=== PATIENT | male | born 1965 | race Caucasian/White ===

== ENCOUNTER 2017-12-16 05:51 | Day surgery (SDC) | payer OTHER ==
[2017-12-16] MEDS ORDERED: NEURONTIN300 MG PO (09:45)
[2017-12-16] MEDS ORDERED: PERCOCET 5-3251 EACH PO (09:45)
[2017-12-16] MEDS ORDERED: NUPERCAINAL56.7 GM TOP (09:46)
== END 2017-12-16 16:00 | disposition home or self-care (01) ==
LOC: CIR.AMB 05:51
DX: K64.4 Residual hemorrhoidal skin tags (principal); K64.8 Other hemorrhoids

== ENCOUNTER 2020-11-03 07:59 | Day surgery (SDC) | payer OTHER ==
[~2020-11-03 07:59] MED LIST: NEURONTIN300 MG PO; NUPERCAINAL56.7 GM TOP; PERCOCET 5-3251 EACH PO
== END 2020-11-03 13:15 | disposition home or self-care (01) ==
LOC: AMB-ENDOS 07:59
PROVIDERS: ATTEND Surgery
DX: K62.89 Other specified diseases of anus and rectum (principal); K64.4 Residual hemorrhoidal skin tags; Z20.822 Contact with and (suspected) exposure to COVID-19

== ENCOUNTER 2020-12-23 10:36 | Outpatient (CLI) | payer OTHER | END 2020-12-23 10:42 | disposition home or self-care (01) | LOC: PPH VACUNA 10:36 | PROVIDERS: ATTEND Emergency Medicine Pediatric Emergency Medicine | DX: Z23 Encounter for immunization (principal) ==

== ENCOUNTER 2021-10-31 10:50 | Outpatient (CLI) | payer OTHER | END 2021-10-31 11:00 | disposition home or self-care (01) | LOC: PPH VACUNA 10:50 | PROVIDERS: ATTEND Emergency Medicine Pediatric Emergency Medicine | DX: Z23 Encounter for immunization (principal) ==

== ENCOUNTER 2022-04-03 10:02 | Outpatient (CLI) | payer OTHER | END 2022-04-03 10:12 | disposition home or self-care (01) | LOC: PPH VACUNA 10:02 | PROVIDERS: ATTEND Emergency Medicine Pediatric Emergency Medicine | DX: Z23 Encounter for immunization (principal) ==

== ENCOUNTER → 2024-07-31 | Emergency (ER) | payer OTHER ==
[~2024-07-31] VITALS: Ht 172.7 cm; Wt 81.6 kg
[~2024-07-31] MED LIST changes: +0.9 % SODIUM CHLORIDE 1,000 ML IV ONE; +0.9 % SODIUM CHLORIDE 1,000 ML IV SCH; +CEFTRIAXONE SODIUM 2,000 MG VIAL IV ONE; +CEFTRIAXONE SODIUM 2,000 MG VIAL ONE; +COZAAR25 MG PO; +MORPHINE SULFATE 4 MG/ML CARTRIDGE IV ONE; +NOREPINEPHRINE BITARTRATE 1 MG/ML AMPUL IV ONE; +NOREPINEPHRINE BITARTRATE 8 MG in DEXTROSE 5 % IN WATER 250 ML IV SCH; +OxyCODONE HCL 5 MG TABLET (ROXICODONE) PO ONE
[2024-07-31 17:33] LABS: ABG PH 7.419 (7.35-7.45); ABG PO2 75.9 mmHg (80-100); ABG pCO2 32.2 mmHg (35-45); BICARBONATE 20.4 mmol/l (23-25); SaO2 95.2 %; Tco2 21.4 mmol/l
[2024-07-31 17:39] LABS: BASO % 0.2 % (0.1-1.2); HEMATOCRIT 41.9 % (40.1-51.0); HEMOGLOBIN 14.5 g/dL (13.7-17.5); LYMPH # 0.09 (1.18-3.74); LYMPH % 0.9 % (19.3-53.1); MEAN CORPUSCULAR HEMOGLOBIN 31.7 pg (25.6-32.2); MONO # 0.07 (0.24-0.82); MONO % 0.7 % (4.7-12.5); NEUT # 9.85 (1.56-6.13); NEUT % 97.4 % (34.0-71.1); PLATELET COUNT 157 K/uL (163-369); RED BLOOD COUNT 4.58 M/uL (4.63-6.08); RED CELL DISTRIBUTION WIDTH 13.9 % (11.6-14.4)
[2024-07-31 17:48] LABS: INR 1.12; PARTIAL THROMBOPLASTIN TIME 29.3 SECONDS (22.0-34.0); PROTHROMBIN TIME 12.1 SECONDS (9.0-11.5)
[2024-07-31 17:53] LABS: ALBUMIN 3.1 gm/dL (3.4-5.0); BILIRUBIN TOTAL 1.19 mg/dL (0.3-1.2); CALCIUM 8.4 mg/dL (8.5-10.1); CREATININE SERUM 1.93 mg/dL (0.70-1.30); GFR 35.93; GLOBULINA 2.6 G/DL (2.4-3.5); POTASSIUM 4.44 mEq/L (3.5-5.1); TOTAL PROTEIN 5.7 gm/dL (6.4-8.2)
[2024-07-31 18:58] LABS: allen test SATISFACTORY; mode ROOM AIR; o2 21 %; puncture site RADIAL RIGHT
[2024-07-31 19:03] LABS: BILIRUBIN,UNCONJUGATED 0.99 mg/dL (0.0-0.6)
[2024-07-31 19:04] LABS: BILIRUBIN,CONJUGATED 0.2 mg/dL (0.0-0.2)
[2024-07-31 19:13] LABS: URINE APPEARANCE Turbid; URINE BILIRRUBIN Moderate (NEGATIVE); URINE BLOOD Moderate; URINE COLOR Orange; URINE GLUCOSE Negative (NEGATIVE); URINE KETONE Trace (NEGATIVE); URINE LEUKOCYTE Moderate; URINE NITRATE Positive
[2024-07-31 19:18] LABS: URINE BACTERIA 369.6 uL (0.0-1933); URINE CAST 21.35 uL (0.0-1.40); URINE EPITHELIAL CELLS 49.8 uL (0.0-38.8); URINE RBC 32.2 uL (0.0-20.8); URINE WBC 631.7 uL (0.0-23.2)
[2024-07-31 19:22] LABS: COVID-19 AG NEGATIVE (NEGATIVE)
[2024-07-31 20:26] LABS: URINE PROTEIN 100 (NEGATIVE)
== END | disposition designated cancer center or children's hospital (05) ==
LOC: ER 16:24
PROVIDERS: General Practice
DX: I95.89 Other hypotension (principal); Z85.46 Personal history of malignant neoplasm of prostate; Z85.038 Personal history of other malignant neoplasm of large intestine; I10 Essential (primary) hypertension; S37.019A Minor contusion of unspecified kidney, initial encounter; N39.0 Urinary tract infection, site not specified
CPT/HCPCS: 36415; 74176; 74177; 82803; 93005; Q9965

== ENCOUNTER 2024-10-19 10:05 | Outpatient (CLI) | payer OTHER ==
[~2024-10-19 10:05] MED LIST changes: -0.9 % SODIUM CHLORIDE 1,000 ML IV ONE; -0.9 % SODIUM CHLORIDE 1,000 ML IV SCH; -CEFTRIAXONE SODIUM 2,000 MG VIAL IV ONE; -CEFTRIAXONE SODIUM 2,000 MG VIAL ONE; -MORPHINE SULFATE 4 MG/ML CARTRIDGE IV ONE; -NOREPINEPHRINE BITARTRATE 1 MG/ML AMPUL IV ONE; -NOREPINEPHRINE BITARTRATE 8 MG in DEXTROSE 5 % IN WATER 250 ML IV SCH; -OxyCODONE HCL 5 MG TABLET (ROXICODONE) PO ONE
== END 2024-10-19 10:18 | disposition home or self-care (01) ==
LOC: TOM 10:05
PROVIDERS: ATTEND Urology
DX: R31.0 Gross hematuria (principal)

== ENCOUNTER 2024-11-24 07:28 | Outpatient (CLI) | payer OTHER | END 2024-11-24 07:31 | disposition home or self-care (01) | LOC: TOM 07:28 | PROVIDERS: ATTEND Urology | DX: N40.0 Benign prostatic hyperplasia without lower urinary tract symptoms (principal); C61 Malignant neoplasm of prostate; R31.1 Benign essential microscopic hematuria ==